=== PATIENT | male | born 1955 | race Caucasian/White ===

== ENCOUNTER 2019-07-31 07:07 | Outpatient (CLI) | payer OTHER, SELFPAY ==
[2019-07-31 08:13] LABS: Alanine Aminotransferase 22 U/L (4-50); Alkaline Phosphatase 58 U/L (38-126); Aspartate Amino Transferase 25 U/L (17-59); Bilirubin,Total 0.6 mg/dL (0.2-1.3); Blood Urea Nitrogen 14 mg/dL (9-20); Calcium 8.6 mg/dL (8.4-10.2); Carbon Dioxide 31 mmol/L (22-30); Chloride 103 mmol/L (98-107); Cholesterol 153 mg/dL (0-200); Estimated Glomerular Filt Rate > 60; Glucose 109 mg/dL (75-110); HDL Direct 42 mg/dL; Hematocrit 43.9 % (42.0-52.0); Hemoglobin 14.8 g/dL (14.0-18.0); Mean Corpuscular HGB Conc 33.7 g/dl (32-36); Mean Corpuscular Hemoglobin 31.6 pg (26-34); Mean Corpuscular Volume 93.6 fl (80-100); Mean Platelet Volume 9.4 fl (7.4-10.4); Platelet Count Result 244 k/mm3 (150-375); Potassium 4.4 mmol/L (3.4-5.0); Red Blood Count 4.69 M/mm3 (4.6-6.20); Red Cell Distribution Width 12.3 % (11.5-14.5); Sodium 137 mmol/L (137-145); Triglycerides 57 mg/dL (<150); White Blood Count 6.9 K/mm3 (4.5-10.0)
[2019-07-31 08:23] LABS: LDL Cholesterol Direct 98 mg/dL
[2019-07-31 08:42] LABS: Prostate Specific Antigen 1.3 ng/mL (< OR = 4.0)
[2019-07-31 09:17] LABS: Folic Acid 9.1 ng/mL (2.76->20)
[2019-08-04 15:24] LABS: Testosterone Free 95.7 pg/mL (35.0-155.0); Testosterone Total 634 ng/dL (250-1100)
== END 2019-07-31 07:08 | disposition home or self-care (01) ==
PROVIDERS: PCP Internal Medicine; Visit Provider Internal Medicine
DX: Z00.00 Encounter for general adult medical examination without abnormal findings (principal); N52.9 Male erectile dysfunction, unspecified; R53.83 Other fatigue
CPT/HCPCS: 36415; 80053; 80061; 82607; 82746; 84153; 84402; 84403; 84443; 85027

== ENCOUNTER 2021-02-10 06:59 | Outpatient (CLI) | payer OTHER, SELFPAY ==
[2021-02-10 09:24] LABS: Basophils Percent Auto 0.6 % (0.2-1.2); Eosinophils Absolute Auto 0.3 K/mm3 (0-0.3); Eosinophils Percent Auto 5.4 % (0-4.4); Hematocrit 44.9 % (42.0-52.0); Hemoglobin 14.7 g/dL (14.0-18.0); Immature Granulocyte Absolute 0.01 K/mm3 (0.00-0.031); Immature Granulocyte Percent A 0.2 % (0-0.5); Lymphocytes Absolute Auto 1.59 K/mm3 (0.9-3.2); Lymphocytes Percent Auto 25.4 % (18.3-44.2); Mean Corpuscular HGB Conc 32.7 g/dl (32-36); Mean Corpuscular Hemoglobin 31.7 pg (26-34); Mean Corpuscular Volume 96.8 fl (80-100); Mean Platelet Volume 9.6 fl (7.4-10.4); Monocytes Absolute Auto 0.6 K/mm3 (0.1-0.6); Monocytes Percent Auto 8.9 % (2.6-8.5); Neutrophils Absolute Auto 3.7 K/mm3 (1.3-6.7); Neutrophils Percent Auto 59.5 % (45.5-73.1); Platelet Count Result 243 k/mm3 (150-375); Red Blood Count 4.64 M/mm3 (4.6-6.20); Red Cell Distribution Width 12.6 % (11.5-14.5); White Blood Count 6.3 K/mm3 (4.5-10.0)
[2021-02-10 11:03] LABS: Alanine Aminotransferase 31 U/L (4-50); Albumin Level 4.2 g/dL (3.5-5.1); Alkaline Phosphatase 55 U/L (38-126); Anion Gap 4 mmol/L (8-16); Aspartate Amino Transferase 34 U/L (17-59); Bilirubin,Total 0.9 mg/dL (0.2-1.3); Blood Urea Nitrogen 16 mg/dL (9-20); Calcium 8.9 mg/dL (8.4-10.2); Carbon Dioxide 29 mmol/L (22-30); Chloride 105 mmol/L (98-107); Cholesterol 162 mg/dL (0-200); Estimated Glomerular Filt Rate 60; Glucose 105 mg/dL (65-110); HDL Direct 56 mg/dL; Potassium 4.3 mmol/L (3.4-5.0); Sodium 138 mmol/L (137-145); Triglycerides 57 mg/dL (<150)
[2021-02-10 11:14] LABS: LDL Cholesterol Direct 96 mg/dL
[2021-02-10 11:34] LABS: Prostate Specific Antigen 1.2 ng/mL (< OR = 4.0)
[2021-02-10 12:08] LABS: Folic Acid 4.4 ng/mL (2.76->20)
== END 2021-02-10 07:00 | disposition home or self-care (01) ==
PROVIDERS: PCP Internal Medicine; Visit Provider Internal Medicine
DX: Z00.00 Encounter for general adult medical examination without abnormal findings (principal); R53.83 Other fatigue
CPT/HCPCS: 36415; 80053; 80061; 82607; 82746; 84153; 84443; 85025; G0103

== ENCOUNTER 2021-04-27 08:35 | Outpatient (CLI) | payer OTHER, SELFPAY ==
--- NOTE | 2021-04-27 11:00 | NEURO_ITS ---
Impression: # Complains of numbness of upper and lower extremities. # Subtle evolving bilateral Carpal Tunnel Syndrome. # No ulnar neuropathy. # Normal needle/EMG exam with no evidence of fibrillations or myotonia. # Clinical correlation recommended. Nerve Conduction Studies Anti Sensory Summary Table Stim Site NR Peak (ms) P-T Amp (?V) Site1 Site2 Delta-P (ms) Dist (cm) Tylor (m/s) Left Median Anti Sensory (2-3nd Digit) Wrist 3.6 40.7 Wrist 2-3nd Digit 3.6 14.0 39 Wrist 3.4 52.0 Wrist 2-3nd Digit 3.6 14.0 39 Right Median Anti Sensory (2-3nd Digit) Wrist 3.9 66.4 Wrist 2-3nd Digit 3.9 14.0 36 Wrist 4.0 42.0 Wrist 2-3nd Digit 3.9 14.0 36 Left Radial Anti Sensory (Base 1st Digit) Wrist 2.3 24.4 Wrist Base 1st Digit 2.3 0.0 Right Radial Anti Sensory (Base 1st Digit) Wrist 2.4 18.9 Wrist Base 1st Digit 2.4 0.0 Left Sup Fibular Anti Sensory (Ant Lat Mall) 14 cm 3.2 28.2 14 cm Ant Lat Mall 3.2 16.0 50 Right Sup Fibular Anti Sensory (Ant Lat Mall) 14 cm 3.5 16.9 14 cm Ant Lat Mall 3.5 16.0 46 Left Sural Anti Sensory (Lat Mall) Calf 3.9 11.5 Calf Lat Mall 3.9 16.0 41 Right Sural Anti Sensory (Lat Mall) Calf 3.8 22.6 Calf Lat Mall 3.8 16.0 42 Left Ulnar Anti Sensory (5th Digit) Wrist 2.9 57.5 Wrist 5th Digit 2.9 14.0 48 Right Ulnar Anti Sensory (5th Digit) Wrist 2.9 21.5 Wrist 5th Digit 2.9 14.0 48 Motor Summary Table Stim Site NR Onset (ms) O-P Amp (mV) Site1 Site2 Delta-0 (ms) Dist (cm) Tylor (m/s) Left Median Motor (Abd Poll Brev) Wrist 4.0 2.4 Elbow Wrist 5.5 30.0 55 Elbow 9.5 3.9 Right Median Motor (Abd Poll Brev) Wrist 3.7 2.5 Elbow Wrist 4.9 28.0 57 Elbow 8.6 1.2 Left Peroneal Motor (Vastus Med) Ankle 4.5 1.5 Popit Ankle 9.6 41.0 43 Popit 14.1 0.7 Right Peroneal Motor (Vastus Med) Ankle 4.8 4.2 Popit Ankle 9.1 37.0 41 Popit 13.9 3.3 Left Tibial Motor (Abd Head Brev) Ankle 4.8 2.5 Knee Ankle 10.1 42.0 42 Knee 14.9 2.6 Right Tibial Motor (Abd Head Brev) Ankle 5.0 1.9 Knee Ankle 9.8 41.0 42 Knee 14.8 1.9 Left Ulnar Motor (Abd Dig Minimi) Wrist 2.9 4.3 A Elbow Wrist 5.1 30.0 59 A Elbow 8.0 3.8 Right Ulnar Motor (Abd Dig Minimi) Wrist 2.6 4.6 A Elbow Wrist 5.1 29.0 57 A Elbow 7.7 4.4 F Wave Studies NR F-Lat (ms) L-R F-Lat (ms) Left Median (Mrkrs) (Abd Poll Brev) 29.29 0.15 Right Median (Mrkrs) (Abd Poll Brev) 29.44 0.15 Left Peroneal (Mrkrs) (EDB) 54.31 0.85 Right Peroneal (Mrkrs) (EDB) 53.46 0.85 Left Tibial (Mrkrs) (Abd Hallucis) 54.67 0.27 Right Tibial (Mrkrs) (Abd Hallucis) 54.94 0.27 Left Ulnar (Mrkrs) (Abd Dig Min) 30.65 1.05 Right Ulnar (Mrkrs) (Abd Dig Min) 29.59 1.05 EMG Side Muscle Nerve Root Ins Act Fibs Amp Dur Recrt Comment Right 1stDorInt Ulnar C8-T1 Nml Nml Nml Nml Nml Right Ext Indicis Radial (Post Int) C7-8 Nml Nml Nml Nml Nml Right Ext Digitorum Radial (Post Int) C7-8 Nml Nml Nml Nml Nml Right BrachioRad Radial C5-6 Nml Nml Nml Nml Nml Right PronatorTeres Median C6-7 Nml Nml Nml Nml Nml Right Abd Poll Brev Median C8-T1 Nml Nml Nml Nml Nml Right AntTibialis Dp Br Fibular L4-5
== END 2021-04-27 08:36 | disposition home or self-care (01) ==
LOC: ANHNEURO 08:37
PROVIDERS: PCP Internal Medicine; Visit Provider Physician Assistant
DX: G56.03 Carpal tunnel syndrome, bilateral upper limbs (principal); R20.0 Anesthesia of skin
CPT/HCPCS: 95886; 95913

== ENCOUNTER 2021-05-20 01:03 | Day surgery (SDC) | payer OTHER, SELFPAY ==
[2021-05-06 13:52] VITALS: BMI 25.1
[2021-05-20 06:58] VITALS: BP 138/82; PULSE 82; RESP 20; TEMP 36.8; O2SAT 97
[2021-05-20] MEDS: LACTATED RINGERS 1,000 ML 150 ML IV CONT (07:11)
--- NOTE | 2021-05-20 07:26 | WPDANESEPPF ---
Anes - Initial Pre Proc Eval Procedure: Operation Date: 05/20/21 08:00 Proposed Procedures p Screening Colonoscopy - Justyn Brooks MD Date/Time: 05/20/21 07:26 Surgeon: Justyn Brooks MD Pre Op Diagnosis: neoplasm screening Patient Data Age: 65 Gender: M Height: 1.78 m Weight: 76.3 kg Last Vital Signs Temp 36.8 C 05/20/21 06:58 Pulse 82 05/20/21 06:58 Resp 20 05/20/21 06:58 BP 138/82 05/20/21 06:58 Pulse Ox 97 05/20/21 06:58 Allergies Allergy/AdvReac Type Severity Reaction Status Date / Time No Known Allergies Allergy Verified 05/20/21 06:56 Home Medications Medication Instructions Recorded Confirmed Type fluticasone propionate 50 2 spray NASAL DAILY 01/16/19 05/06/21 History mcg/actuation nasal spray,suspension sildenafil 100 mg tablet 100 mg PO DAILY PRN #9 tablet 01/22/19 05/06/21 Rx halobetasol propionate 0.05 % 1 applic TOPICAL DAILY #15 gm 09/29/19 05/06/21 Rx topical ointment fexofenadine 60 mg-pseudoephedrine 1 tablet PO Q12H PRN 01/17/21 05/06/21 History ER 120 mg tablet,ext.release,12 hr tczppmlv-zgr-ipmbr acid 300 1 tablet PO DAILY 01/17/21 05/06/21 History mcg-lycopene 600 mcg-lutein 300 mcg tablet Patient hx anesthesia problems: none Family hx anesthesia problems: none Results Review: All pre-operative results and documents have been reviewed as part of the pre-operative evaluation. COUNT INCLUDES [facility] Surgical History Surgical History (Updated 05/20/21 @ 07:27 by Rayshawn Hinojosa MD) H/O arthroscopic knee surgery Family History Family History Mother Hypertension Father Patient's father is Grandparent Family history of heart disease in male family member before age 55 Social History Social History Smoking status: Never smoker Second hand tobacco smoke exposure: No Alcohol intake: current Drinks per week: 8 Substance use: never Substance use type: does not use Living arrangements: with family Spiritual care concerns: No Anes - Eval Final PreProcedure Day of Procedure 05/20/21 07:26 Patient weight: overweight Heart: regular rate and rhythm Lungs: clear to auscultation Airway: Mallampati scale class II Neurological: alert and oriented Last oral intake: >/= 8 hours ASA classification: II Emergent: no Anesthetic plan: proceed Anesthesia type and monitoring: general GIVS and standard monitoring Results Review: All pre-operative results and documents have been reviewed as part of the pre-operative evaluation. Informed Consent: The patient's anesthetic plan and its attendant risks and benefits were discussed with the patient/family/POA. Questions were solicited and answers provided to the satisfaction of the patient/family/POA.
--- NOTE | 2021-05-20 07:54 | WPDGICN ---
Assessment and Plan Assessment and plan (1) Encounter for screening colonoscopy: Code(s): Z12.11 - Encounter for screening for malignant neoplasm of colon Status: Acute Assessment and Plan: Patient presents for screening colonoscopy. Has been 10 years since last exam. Patient appears to be at average risk for colon polyps. GI Consult Note Consult date/time: 05/20/21 07:54 HPI: Davi Hong is a 65 year old male Presents for screening colonoscopy. Patient's current weight appetite bowel movements are normal. He denies abdominal pain. He has had no bleeding. Family history is noncontributory. Patient's last colonoscopy 10 years ago was unremarkable. Patient presents today for neoplasia screening. Review of Systems Review of Systems: All systems reviewed & are unremarkable except as noted in HPI and below PMFSH Surgical History Surgical History (Updated 05/20/21 @ 07:27 by Rayshawn Hinojosa MD) H/O arthroscopic knee surgery Family History Family History Mother Hypertension Father Patient's father is Grandparent Family history of heart disease in male family member before age 55 Social History Social History Smoking status: Never smoker Second hand tobacco smoke exposure: No Alcohol intake: current Drinks per week: 8 Substance use: never Substance use type: does not use Living arrangements: with family Spiritual care concerns: No Meds Home Medications and Allergies Home Medications Medication Instructions Recorded Confirmed Type fluticasone propionate 50 2 spray NASAL DAILY 01/16/19 05/06/21 History mcg/actuation nasal spray,suspension sildenafil 100 mg tablet 100 mg PO DAILY PRN #9 tablet 01/22/19 05/06/21 Rx halobetasol propionate 0.05 % 1 applic TOPICAL DAILY #15 gm 09/29/19 05/06/21 Rx topical ointment fexofenadine 60 mg-pseudoephedrine 1 tablet PO Q12H PRN 01/17/21 05/06/21 History ER 120 mg tablet,ext.release,12 hr gitauuqj-efv-qxecu acid 300 1 tablet PO DAILY 01/17/21 05/06/21 History mcg-lycopene 600 mcg-lutein 300 mcg tablet Allergies Allergy/AdvReac Type Severity Reaction Status Date / Time No Known Allergies Allergy Verified 05/20/21 06:56 Vital Signs Vital Signs - 24 hr 05/20/21 06:58 Temperature 98.2 F Pulse Rate 82 Respiratory Rate 20 Blood Pressure 138/82 Pulse Oximetry 97 Exam Narrative: Physical exam reveals patient to be alert. Vital signs stable. HEENT exam is unremarkable. Patient is anicteric. Lungs are clear to auscultation and percussion. Heart is without murmur or extra sounds. Abdomen bowel sounds are present soft nontender with no organomegaly. Digital external rectal exam is normal.
[2021-05-20 08:22] VITALS: BP 112/71; PULSE 75; RESP 13; O2SAT 97
[2021-05-20 08:32] VITALS: BP 118/79; PULSE 72; RESP 20; O2SAT 97
[2021-05-20 08:42] VITALS: BP 142/87; PULSE 71; RESP 24; O2SAT 99
== END 2021-05-20 08:45 | disposition home or self-care (01) ==
PROVIDERS: PCP Internal Medicine; Visit Provider Internal Medicine Gastroenterology
PROC: 0DJD8ZZ Inspection of Lower Intestinal Tract, Via Natural or Artificial Opening Endoscopic (ICD-10-PCS; CPT 45378; principal; 2021-05-20 08:00)
DX: Z12.11 Encounter for screening for malignant neoplasm of colon (principal); D12.2 Benign neoplasm of ascending colon; D12.3 Benign neoplasm of transverse colon; D12.5 Benign neoplasm of sigmoid colon; K64.8 Other hemorrhoids
CPT/HCPCS: 45385; 88305; J2704; J7120

== ENCOUNTER → 2021-12-26 15:22 | Outpatient (CLI) | payer OTHER, SELFPAY ==
--- NOTE | ~2021-12-26 | CT_ITS ---
EXAMINATION: CTA chest PE protocol DATE: 12/26/2021 15:57 INDICATION: Elevated d-dimer TECHNIQUE: Computed tomography (CT) pulmonary angiogram of the chest was performed with 100 mL Omnipa que-350 intravenous contrast. Additional 3D reconstructions utilizing coronal maximum intensity proje ction (MIP) were performed. Automated exposure control and iterative reconstruction technique were em ployed. The dose-length product was 427.75 mGy-cm. COMPARISON: None FINDINGS: Excellent contrast opacification of the pulmonary arteries. There is mild streak artifact from dense contrast in the superior vena cava and right atrium. Mild scattered respiratory motion artifact switc hed does not significantly limit evaluation. No pulmonary embolism. Mild dependent atelectasis in the bilateral lower lobes with dependent groundglass opacities, volume loss and bronchovascular crowding . No pneumonia, pulmonary edema, pleural effusion or pneumothorax. Heart size is normal. No pericardi al effusion. Thoracic aorta is normal in caliber with no dissection. No pathologically enlarged thora cic lymphadenopathy. Multiple hepatic cysts the largest measuring up to 2.3 cm. Visualized upper abd omen is otherwise unremarkable. Bones are unremarkable. IMPRESSION: 1. No pulmonary embolism or other acute cardiopulmonary disease. Reviewed, dictated and finalized at location A. SAMPLE MAKER
[2021-12-26 15:44] LABS: Estimated Glomerular Filt Rate 60
== END ==
PROVIDERS: PCP Internal Medicine
DX: R79.89 Other specified abnormal findings of blood chemistry (principal); I82.402 Acute embolism and thrombosis of unspecified deep veins of left lower extremity
CPT/HCPCS: 71275; Q9967

== ENCOUNTER → 2022-01-06 07:15 | Outpatient (CLI) | payer OTHER, SELFPAY ==
--- NOTE | ~2022-01-06 | MR_ITS ---
EXAMINATION: MR lower leg LT wo con DATE: 01/06/2022 07:58 INDICATION: Bone lesion in left tibia. Left calf pain. TECHNIQUE: Magnetic resonance imaging (MRI) of the left lower leg was performed without intravenous c ontrast. COMPARISON: None. FINDINGS: Bone alignment is normal. No fracture. Tibial diaphysis demonstrates periosteal edema anter iorly. Left knee demonstrates severe osteoarthritis of the medial compartment and mild osteoarthritis of the lateral and patellofemoral compartments. There is a moderate-sized Ron's cyst. The musculat ure is normal. IMPRESSION: 1. Severe left knee osteoarthritis. 2. Moderate-sized left Ron's cyst. 3. Mild medial tibial stress syndrome ([place] grade 1). Reviewed, dictated and finalized at location A. OPATHOLOGIST
== END ==
PROVIDERS: PCP Internal Medicine
DX: M17.12 Unilateral primary osteoarthritis, left knee (principal); M76.812 Anterior tibial syndrome, left leg
CPT/HCPCS: 73718

== ENCOUNTER 2022-06-29 06:51 | Outpatient (CLI) | payer OTHER, SELFPAY ==
[2022-06-29 07:36] LABS: Basophils Absolute Auto 0.1 K/mm3 (0.0-0.1); Basophils Percent Auto 0.7 % (0.2-1.2); Eosinophils Absolute Auto 0.4 K/mm3 (0-0.3); Eosinophils Percent Auto 5.8 % (0-4.4); Hematocrit 43.3 % (42.0-52.0); Hemoglobin 14.2 g/dL (14.0-18.0); Immature Granulocyte Absolute 0.01 K/mm3 (0.00-0.031); Immature Granulocyte Percent A 0.1 % (0-0.5); Lymphocytes Absolute Auto 1.73 K/mm3 (0.9-3.2); Lymphocytes Percent Auto 24.5 % (18.3-44.2); Mean Corpuscular HGB Conc 32.8 g/dl (32-36); Mean Corpuscular Hemoglobin 31.3 pg (26-34); Mean Corpuscular Volume 95.4 fl (80-100); Mean Platelet Volume 9.4 fl (7.4-10.4); Monocytes Absolute Auto 0.5 K/mm3 (0.1-0.6); Monocytes Percent Auto 7.5 % (2.6-8.5); Neutrophils Absolute Auto 4.3 K/mm3 (1.3-6.7); Neutrophils Percent Auto 61.4 % (45.5-73.1); Platelet Count Result 246 k/mm3 (150-375); Red Blood Count 4.54 M/mm3 (4.6-6.20); Red Cell Distribution Width 12.6 % (11.5-14.5); White Blood Count 7.1 K/mm3 (4.5-10.0)
[2022-06-29 09:47] LABS: Alanine Aminotransferase 26 U/L (6-50); Albumin Level 4.2 g/dL (3.5-5.1); Alkaline Phosphatase 55 U/L (38-126); Anion Gap 4 mmol/L (8-16); Aspartate Amino Transferase 28 U/L (17-59); Bilirubin,Total 1.1 mg/dL (0.2-1.3); Blood Urea Nitrogen 17 mg/dL (9-20); Calcium 8.5 mg/dL (8.4-10.2); Carbon Dioxide 30 mmol/L (22-30); Chloride 105 mmol/L (98-107); Cholesterol 173 mg/dL (0-200); Estimated Glomerular Filt Rate > 60; Glucose 108 mg/dL (65-110); HDL Direct 43 mg/dL; Potassium 4.5 mmol/L (3.4-5.0); Sodium 139 mmol/L (137-145); Triglycerides 74 mg/dL (<150)
[2022-06-29 09:58] LABS: LDL Cholesterol Direct 107 mg/dL
[2022-06-29 10:18] LABS: Prostate Specific Antigen 1.5 ng/mL (< OR = 4.0)
== END 2022-06-29 06:52 | disposition home or self-care (01) ==
LOC: ANHLAB 06:52
PROVIDERS: PCP Internal Medicine; Visit Provider Internal Medicine
DX: Z00.00 Encounter for general adult medical examination without abnormal findings (principal); E53.8 Deficiency of other specified B group vitamins; Z12.5 Encounter for screening for malignant neoplasm of prostate
CPT/HCPCS: 36415; 80053; 80061; 82607; 84153; 84443; 85025; G0103

== ENCOUNTER 2023-12-17 08:44 | Outpatient (CLI) | payer OTHER, SELFPAY ==
[2023-12-17 09:15] LABS: Hematocrit 46.7 % (42.0-52.0); Hemoglobin 15.1 g/dL (14.0-18.0); Mean Corpuscular HGB Conc 32.3 g/dl (32-36); Mean Corpuscular Hemoglobin 31.1 pg (26-34); Mean Corpuscular Volume 96.1 fl (80-100); Mean Platelet Volume 9.1 fl (7.4-10.4); Platelet Count Result 223 k/mm3 (150-375); Red Blood Count 4.86 M/mm3 (4.6-6.20); Red Cell Distribution Width 12.5 % (11.5-14.5); White Blood Count 6.7 K/mm3 (4.5-10.0)
[2023-12-17 09:25] LABS: Alanine Aminotransferase 23 U/L (6-50); Albumin Level 4.1 g/dL (3.5-5.1); Alkaline Phosphatase 50 U/L (38-126); Anion Gap 4 mmol/L (4-12); Aspartate Amino Transferase 26 U/L (17-59); Blood Urea Nitrogen 16 mg/dL (9-20); Carbon Dioxide 30 mmol/L (22-30); Chloride 103 mmol/L (98-107); Cholesterol 182 mg/dL (0-200); Estimated Glomerular Filt Rate > 60; Glucose 103 mg/dL (65-110); HDL Direct 52 mg/dL; Potassium 4.2 mmol/L (3.4-5.0); Sodium 137 mmol/L (137-145); Triglycerides 86 mg/dL (<150)
[2023-12-17 09:37] LABS: LDL Cholesterol Direct 104 mg/dL
[2023-12-17 10:02] LABS: Prostate Specific Antigen 1.3 ng/mL (< OR = 4.0)
== END 2023-12-17 08:45 | disposition home or self-care (01) ==
LOC: ANHLAB 08:45
PROVIDERS: PCP Internal Medicine; Visit Provider Nurse Practitioner
DX: E53.8 Deficiency of other specified B group vitamins (principal); Z00.00 Encounter for general adult medical examination without abnormal findings
CPT/HCPCS: 36415; 80053; 80061; 82607; 84153; 84443; 85027; G0103

== ENCOUNTER 2024-03-10 08:36 | Emergency (ER) | payer OTHER, SELFPAY ==
[2024-03-10 08:51] VITALS: BP 179/98; PULSE 76; RESP 16; TEMP 36.5; O2SAT 97
--- NOTE | 2024-03-10 09:09 | ED_ITS ---
HPI - URI/Sore Throat General Chief Complaint: Upper Respiratory Infection Stated Complaint: DÍAZ,pressure,off balance,cough,fever Time Seen by Provider: 03/10/24 09:09 Source: patient, RN notes reviewed and old records reviewed Mode of arrival: ambulatory Limitations: no limitations History of Present Illness HPI Narrative: Patient presents with complaints of flu-like symptoms for the past 5 days. He reports that he feels as though he is getting better, but still feels as though he has a lot head congestion. He has been taking multiple bknf-wwy-swjfrie medications, some with decongestant, and he is aware that this is elevating his blood pressure. He denies any chest pain or shortness of breath. He voices no other concerns or complaints today Related Data Home Medications ?Medication ?Instructions ?Recorded ?Confirmed ?Last Taken ?Type fluticasone propionate 50 2 spray intranasal DAILY 01/16/19 12/11/23 Unknown History mcg/actuation nasal spray,suspension (Flonase Allergy Relief) fexofenadine 60 mg-pseudoephedrine 1 tablet PO Q12H PRN Allergy 01/17/21 12/11/23 Unknown History ER 120 mg tablet,ext.release,12 hr Symptoms (Lani-D 12 Hour) eilrgbhg-tr-ipptk 300 mcg-K 60 1 tablet PO DAILY 01/17/21 12/11/23 Unknown History mcg-lycop 600 mcg-lutein 300 mcg tablet (Centrum Silver Ultra Men's) apixaban 5 mg tablet (Eliquis) 5 mg PO BID 06/12/22 12/11/23 Unknown History Allergies Allergy/AdvReac Type Severity Reaction Status Date / Time No Known Allergies Allergy Verified 03/10/24 08:55 Review of Systems Review of Systems: All systems reviewed & are unremarkable except as noted in HPI and below Constitutional: Constitutional: Reports no additional constitutional complaints, Reports body ache(s), Reports chills, Reports fever(s), Reports headache(s) and Reports lethargy ENT: Reports system reviewed and no additional complaints, except as documented, Reports nasal congestion and Reports nasal discharge Cardiovascular: Cardiovascular: Reports no additional cardiovascular complaints Respiratory: Respiratory: Reports no additional respiratory complaints and Reports cough Gastrointestinal: Gastrointestinal: Reports no additional gastrointestinal complaints [facility] Past Medical History Medical History (Updated 03/10/24 @ 09:20 by Harrietgabriel August APRN) Pain in left knee Cough Congestion of left ear BMI 25.0-25.9,adult Surgical History Surgical History H/O arthroscopic knee surgery Family History Family History Mother Hypertension Thyroid activity decreased Father Patient's father is Grandparent Family history of heart disease in male family member before age 55 Sibling No problems noted. 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 There is no relevant family history pertinent to the patient complaint. Exam Const: General: cooperative, no acute distress, alert and awake Orientation/consciousness: oriented to person, oriented to place and oriented to time HENMT: Head: normal to inspection Ears: TM abnormal dull bilateral and with fluid behind the TM bilateral Resp: Effort & Inspection: normal respiratory effort and able to speak in co mplete sentences Auscultation: clear to auscultation bilaterally, no crackles, no rales, no rhonchi and no wheezes Cardio: Palpation: normal PMI Rate: regular rate Rhythm: regular rhythm Heart sounds: S1 normal heart sound present and S2 normal heart sound present Neuro: General: oriented to person, oriented to place and oriented to time Cranial nerves: Yes CN's II-XII intact bilaterally Psych: Appearance: grossly normal Thought process: Normal thought process present Insight: Good insight present (Psych) Judgement: Good judgement present (Psych) Course Course Level of Care: Express Care Visit Vital Signs Vital signs: Vital Signs Temperature 97.7 F 03/10/24 08:51 Pulse Rate 76 03/10/24 08:51 Respiratory Rate 16 03/10/24 08:51 Blood Pressure 179/98 H 03/10/24 08:51 Pulse Oximetry 97 03/10/24 08:51 Oxygen Delivery Room Air 03/10/24 08:51 Temperature 97.7 F 03/10/24 08:51 Pulse Rate 76 03/10/24 08:51 Respiratory Rate 16 03/10/24 08:51 Blood Pressure 179/98 H 03/10/24 08:51 Pulse Oximetry 97 03/10/24 08:51 Oxygen Delivery Room Air 03/10/24 08:51 Reviewed MDM - URI/Sore Throat MDM Narrative Medical decision making narrative: Patient nontoxic appearing, stable for discharge home. Counseled to continue to treat symptomatically, but discontinue any medications that contain pseudoephedrine. Blood pressure is elevated as a result of these medications, he denies any chest pain or shortness of breath. He is instructed to monitor blood pressure at home. Strict emergency department precautions discussed. Discharge instructions reviewed with patient, as well as provided in writing per nursing staff. The instructions also include specific and strict return/GO TO THE ER as well as f/u information. All questions have been answered, and the patient deny any further questions with discharge and discharge plan. Some parts of this dictation were generated by voice recognition software and may contain typographical and/or grammatical inaccuracies. Differential Diagnosis Differential diagnosis: Likely upper respiratory infection, otitis media, viral infection and influenza Medical Records Attestation: I reviewed the patient's medical records. Discharge Plan Discharge Clinical Impression: Elevated blood pressure reading Upper respiratory infection Qualifiers: URI type: unspecified viral URI Qualified Code(s): J06.9 - Acute upper respiratory infection, unspecified Patient Disposition: Home, Self-Care Condition: Stable Instructions: Antibiotic Form, Influenza (ED) Additional Instructions: Take medications as prescribed. Follow with primary care provider. Emergency department for any new or worsening symptom. Blood pressure is noted to be elevated today. Please avoid any btpm-koe-tnxqfim medications that contain pseudoephedrine. Follow-up with primary care provider regarding your blood pressure Patient Language: German Prescriptions: New prednisone 50 mg tablet 50 mg PO DAILY Qty: 5 0RF No Action fluticasone propionate [Flonase Allergy Relief] 50 mcg/actuation spray,suspension 2 spray NASAL DAILY sildenafil 100 mg tablet 100 mg PO DAILY PRN (Reason: sexual activity) Qty: 9 5RF Rx Instructions: administer 30 minutes to 4 hours before activity fexofenadine-pseudoephedrine [Lani-D 12 Hour] 60-120 mg tablet extended release 12 hr 1 tablet PO Q12H PRN (Reason: Allergy Symptoms) Centrum Silver Ultra Men's 300-600-300 mcg tablet 1 tablet PO DAILY Eliquis 5 mg tablet 5 mg PO BID azelastine 205.5 mcg (0.15 %) spray,non-aerosol 2 spray intranasal BID Qty: 30 3RF Rx Instructions: administer into each nostril sildenafil 100 mg tablet 100 mg PO DAILY PRN (Reason: sexual activity) Qty: 30 2RF Rx Instructions: administer 30 minutes to 4 hours before activity halobetasol propionate 0.05 % ointment 1 applic TOPICAL DAILY Qty: 15 0RF Rx Instructions: for 2 weeks betamethasone valerate 0.1 % cream 1 applic topical BID Qty: 45 1RF Follow-up/Referrals: Tutu,Aidan Parra DO [Primary Care Provider] - 1 Week Stand Alone Forms: Work/School Release IP Time of Disposition: 09:20
[2024-03-10 09:20] VITALS: BP 182/94
== END 2024-03-10 09:25 | disposition home or self-care (01) ==
PROVIDERS: Emergency Provider Nurse Practitioner Family; PCP Internal Medicine
DX: R03.0 Elevated blood-pressure reading, without diagnosis of hypertension (principal); J06.9 Acute upper respiratory infection, unspecified; M19.90 Unspecified osteoarthritis, unspecified site; Z86.718 Personal history of other venous thrombosis and embolism; Z79.01 Long term (current) use of anticoagulants
CPT/HCPCS: 99213; G0463

== ENCOUNTER 2024-04-01 07:03 | Outpatient (CLI) | payer OTHER, SELFPAY ==
--- OUTSIDE RECORDS SUMMARY | 2024-04-01 07:07 | XMS_ITS | Continuity of Care Document ---
Author Organization [facility] Address [address] [place] [address] Phone Care Team Providers Care Administrative Resident Name Role Phone London Mercado Unavailable Unavailable Allergies, Adverse Reactions, Alerts Substance Reaction Status Criticality No Known Allergies Active No Inform ation Medications Medication Instructions Dosage Effective Dates (start - stop) Status Comments ELIQUIS (unknown strength) Not Available - Active OSCAR-D 12 HOUR (unknown strength) Not Available - Active BRYHALI (unknown strength) Not Available - Active DOXYCYCLINE MONOHYDRATE (unknown strength) Not Available - Active Procedures Procedure Date X-ray exam knee, 4+ views Office/outpatient visit,tom blair 2024 X-ray exam knee, 4+ views BMI Documented Above Normal Limit F/U Pl an Doc Office/outpatient visit,tom aponte 2023 Advance Directives Directive Yes / No Effective Date File Name No Information Encounters Encounter Description Practice Location Reason(s) For Visit Diagnoses Date Provider Providers Copied on Encounter Office/outpat ient visit,[facility] [facility], [address], [place], [place], [id number], [place] tel:[phone] [facility] [facility] left knee (chief complaint) Pain in left kneeUnilateral primary osteoarthritis, left knee 5 Rogelio Snider er. [address], [address], [place], [place], [id number] , [place]. tel:[phone] Office/outpat ient visit,newtom [facility], [address], [place], [place], [address], [place] tel:[phone] [facility] left knee (chief complaint) Pain in left kneeUnilateral primary osteoarthritis, left knee 4 Rogelio bond. [address], [address], [place], [place], [id number] , [place]. tel: [phone] Family History Family Member Type Diagnosis Age At Onset Father Problem (finding) Heart Disease Immunizations Vaccine Date Status Comments influenza, injectable, quadrivalent, (3 years or older) administered Note: per patient ; Source: Source Unspecified Payers Payer name Insurance type Covered alliance party ID Authorrhiannaa xin(s) [facility] [id number] Social History Type Description Quantity Date Captured Comments Alcohol Use Details Unknown Caffeine Use Details Unknown Tobacco Use Status No Information Smoking Status No Information Non-Smoking Tobacco Use Details : No Details Available : No Details Available Sex Male Vital Signs Date / Time: Height Weight BMI Pulse Rate Blood Pressure Temperature Respiratory Rate Body Surface Area Head Circumference Head Circ. Percentile Wt./Kemar. Percentile BMI percentile Pulse Ox Inhaled Ox 11:41 AM 70.00 in 76.204 kg (168.00 lbs) 24.1 1 kg/m eter (2) Chief Complaint And Reason For Visit From encounter dated '02/27/2024 11:00'. left knee (chief complaint). Description: Davi is a 68 year-old male who presents to the office for evaluation of left knee pain. Presents for repeat follow-up of left knee.Has had pain in his left knee for many years. We have seen him in the office several times. He endorses grinding popping limping and instability in his left knee. Pain is on the medial side. Pain is functionally limiting has been noted for greater than 6 months. Conservative treatments have employed including injections anti-inflammatories bracing activity modification and various therapies. He now wishes to proceed with total knee arthroplastyHe has a history of DVT and does take Eliquis 2.5 mg twice a day he has been on this for several years the DVT was in the left lower extremity. He reports no pulmonary embolismRadiographs dated 02/27/2024P, lateral, merchant, Varela views of the left knee demonstrate end-stage osteoarthritis of the medial compartment with severe varus alignment. There are osteophytes present on the medial femur and tibia. There is sclerosis of the subchondral bone of the medial tibia.There is moderate osteoarthritis of the patellofemoral joint. Impression end-stage osteoarthritis of the knee with varus alignmentkELLGREN-AGUSTINA IV arthritis Reason For Referral Reason For Referral No Information Plan Of Treatment Date Type Action Status Referral Ordered: X-ray exam knee, 4+ views LT knee ordered Appointment Davi Hong BOOKED History Of Present Illness Encounter Date Complaint History Of Prese nt Illness left knee Davi is a 68 year-old male who presents to the office for evaluation of left knee pain. Presents for repeat follow-up of left knee.Has had pain in his left knee for many years. We have seen him in the office several times. He endorses grinding popping limping and instability in his left knee. Pain is on the medial side. Pain is functionally limiting has been noted for greater than 6 months. Conservative treatments have employed including injections anti-inflammatories bracing activity modification and various therapies. He now wishes to proceed with total knee arthroplastyHe has a history of DVT and does take Eliquis 2.5 mg twice a day he has been on this for several years the DVT was in the left lower extremity. He reports no pulmonary embolismRadiographs dated 02/27/2024P, lateral, merchant, Varela views of the left knee demonstrate end-stage osteoarthritis of the medial compartment with severe varus alignment. There are osteophytes present on the medial femur and tibia. There is sclerosis of the subchondral bone of the medial tibia. There is moderate osteoarthritis of the patellofemoral joint. Impression end-stage osteoarthritis of the knee with varus alignmentkELLGREN-AGUSTINA IV arthritis left knee Davi is a 67 year-old male who presents to the office for evaluation of left knee pain. He is 5 foot 10, 170 pounds. Denies acute trauma. Pain is rated as 8 out of 10 it is aching, constant, stabbing. He is experiencing limping, popping. Pain is worse with climbing stairs pushing standing and walking. Pain is better with injections Visco supplement. He has been treated with Dr. Azar has had a history of 6 cortisone injections which are no longer working and is now receiving gel injections. He is functionally limiting pain present for greater than 6 months and is no longer amenable to conservative treatment he does have a history of DVT in his left leg he has been on Eliquis for 2 years for this. He is a non-smoker.The patient has completed adequate conservative therapy consisting of: Tylenol, anti-inflammatories, physical therapy, activity modification, and injections. Currently conservative treatment is no longer providing adequate symptom management and the patient wishes to progress to total joint arthroplasty. Symptoms have been present for greater than 6 months, pain is rated as an 8 out of 10 and is functionally limiting. The patient is no longer able to perform activities of daily living such as climbing hills and ramps, a sending and descending stairs, walking greater than 1-2 city blocks without significant pain. Functional Status Date Functional Assessmen t No Information Instructions Date Instruction Additional Infor clair After discussing the risks benefits and alternatives to treatment. Risks include DVT, PE, infection, persistent pain, swelling and stiffness, damage to nerves and arteries, fracture, and loosening. Additional, medical complications related to surgery including constipation, pneumonia, urinary retention, and other issues. The patient understands all this and wishes to proceed with knee arthroplasty. We discussed the hospital course, the postoperative rehabilitation protocol including aggressive outpatient physical therapy. We discussed that if physical therapy is not optimized the patient could develop stiffness of the knee leading to suboptimal outcomes. We also discussed DVT prophylaxis this includes aspirin. Appropriate preoperative radiographs were obtained for templating purposes. All questions were answered wrist and benefits explained the patient wishes to proceed with total knee arthroplasty. Reese Adams. ambulatory outpatient total knee arthroplasty. On Eliquis for DVT prophylaxis postoperatively -- history of DVT in the left lower extremityPress-fit Molly triathlon components Related to Unilateral primary osteoarthritis, left knee After discussing the risks benefits and alternatives to treatment. Risks include DVT, PE, infection, persistent pain, swelling and stiffness, damage to nerves and arteries, Additional, medical complications related to surgery including constipation, pneumonia, urinary retention, and other issues. The patient understands all this and wishes to proceed with knee arthroplasty. We discussed the hospital course, the postoperative rehabilitation protocol including aggressive outpatient physical therapy. We discussed that if physical therapy is not optimized the patient could develop stiffness of the knee leading to suboptimal outcomes. We also discussed DVT prophylaxis this includes aspirin and PAS active care compression devices unless the patient specifically has an increased risk of DVT. Appropriate preoperative radiographs were obtained for templating purposes. All questions were answered wrist and benefits explained the patient wishes to proceed with total knee arthroplasty. Patient wishes to undergo ambulatory outpatient total knee arthroplasty in the fall of 2023. He also has interest in a Visco supplement injection in the next several weeks to give him relief until his knee arthroplasty. Related to Unilateral primary osteoarthritis, left knee Assessments Type Assessment Date assessment Pain in left knee assessment Unilateral primary osteoarthriti s, left knee impression After exhaustion of non-surgical treatment options, the patient has utilized a brace, anti-inflammatories, pain management, physical therapy. Radiographs demonstrate end stage osteoarthritis of the knee and multiple compartments. The patient has persistent pain that is worse with activity. This pain is affecting her life in a negative way. the patient wishes to proceed with total knee arthroplasty, based on the failure of non-surgical treatment methods for knee arthritis.Discussed history of DVT he would need to stop Eliquis for a short period of time prior to the procedure would certainly restart the Eliquis postoperatively. Discussed increased risk of DVT and embolism in the postoperative setting given his history Patient Care Teams Name Effective Dates (start - stop) Status Members No Information
--- OUTSIDE RECORDS SUMMARY | 2024-04-01 07:07 | XMS_ITS | Continuity of Care Document ---
Author Organization [facility] Address [address] [place] [address] Phone Care Team Providers Care Mimeograph Operator Name Role Phone Milagros Perdomo MD Unavailable Unavailable Allergies, Adverse Reactions, Alerts Substance Reaction Status Criticality No Known Allergies Active No Inform ation Procedures Procedure Date RADIOLOGIC EXAMINATION, KNEE; THREE VIEW S KENALOG 10 MG ASP/INJ MAJOR JOINTOR BURSA, SHOULDER, H IP,KNEE W/O US GUIDANCE OFFICE [id number] Advance Directives Directive Yes / No Effective Date File Name No Information Encounters Encounter Description Practice Location Reason(s) For Visit Diagnoses Date Provider Providers Copied on Encounter OFFICE [id number], [address], [place], [place], [address], [place] tel:[phone] [facility] knee (chief complaint) Primary osteoarthritis of left knee Leanne iLnares. [address], [place], [place], [address] , [place]. tel:[phone] Referring Provider: Phan [address] [facility] [address], [place], [address] . tel:[phone] Family History Family Member Type Diagnosis Age At Onset No Information Payers Payer name Insurance type Covered constitution party ID Authoriza tion(s) [facility] [id number] Social History Type Description Quantity Date Captured Comments Alcohol Use Details beer Caffeine Use Details Unknown Aug-25-2022 Tobacco Use Status Current non-smoker Smoking Status Never smoker Non-Smoking Tobacco Use Details : No Details Available : No Details Available Sex Male Sexual Orientation Straight or heterosexual Gender Identity Male Vital Signs Date / Time: Height Weight BMI Pulse Rate Blood Pressure Temperature Respiratory Rate Body Surface Area Head Circumference Head Circ. Percentile Wt./Kemar. Percentile BMI percentile Pulse Ox Inhaled Ox 8:42 AM 70.00 in 77.111 kg (170.00 lbs) 24.3 9 kg/m eter (2) Chief Complaint And Reason For Visit From encounter dated '09/29/2021 09:30'. knee (chief complaint). Description: 10 years of progressive left medial knee dialy 8/10 pain with good rom and hlped a bit with injecitons but not with nsaids or over 6 monhths of phy directed home exercises works [employer] treatment palnt xrys med djd left knee plan reviewed options plan left med uni knee 2022 inj given todya Reason For Referral Reason For Referral No Information Plan Of Treatment Date Type Action Status Referral Ordered: RADIOLOGIC EXAMINATION, KNEE; THREE VIEWS Bilateral Bilateral ordered History Of Present Illness Encounter Date Complaint History Of Prese nt Illness knee 10 years of prog ressive left medial knee dialy 8/10 pain with good rom and hlped a bit with injecitons but not with nsaids or over 6 monhths of phy directed home exercises 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 Patient Care Teams Name Effective Dates (start - stop) Status Members No Information
--- OUTSIDE RECORDS SUMMARY | 2024-04-01 07:07 | XMS_ITS | Patient Health Summary ---
Author Organization [facility] Address [address] [place] [address] Care Team Providers Care Transfer Iron Operator Name Role Phone Aidan Cam DO Primary Care Provider [phone] Note from [facility],non-owned Affiliates and Associated Physician Practices is amultiple site organization consisting of ambulatory clinics and hospital sitesin [place], [place], [place] and [place]. This disclosure is being madepursuant to the Care Everywhere program and may not contain all information available regarding this patient. Last updated 17.[facility] Allergies No known active allergies Medications Be aware that medications may not be up to date on this document. Always verify current medications with the patient. No known medications Social History Tobacco Use Types Packs/Day Years Used Date Smoking Tobacco: Never Tobacco Cessation:Counseling Given: No Alcohol Use Standard Drinks/Week Comments Yes 0 (1 standard drink = 0.6 oz pur e alcohol) socially Sex and Gender Information Value Date Recorded Sex Assigned at Not on file Gender Identity Not on file Sexual Orientation Not on file Last Filed Vital Signs Vital Sign Reading Time Taken Comments Blood Pressure - - Pulse - - Temperature - - Respiratory Rate - - Oxygen Saturation - - Inhaled Oxygen Concentration - - Weight 79.4 kg (175 lb) 11/22/2021 9:41 AM CDT Height 177.8 cm (5' 10 ) 11/22/2021 9:41 AM CDT Body Mass Index 25.11 11/22/2021 9:41 AM CDT Procedures * DERMATOPATHOLOGY(Performed 08/22/2022) * DERMATOPATHOLOGY(Performed 04/15/2020) Results * DERMATOPATHOLOGY (08/22/2022 12:00 AM CDT) Only the most recent of2 resultswithin the time period is included. Case Report Dermatopathology Report Case: [id number] Authorizing Provider: Isael Salcedo MD Collected: 08/22/2022 12:00 AM Ordering Location: [facility] DermPath Lab Received: 08/22/2022 03:15 PM Pathologist: Mino Ball MD Specimen: Skin, left hand 2:20 PM CDT DERMATOPATHOLOGY LABORATORY Final Diagnosis Specimen A. SKIN, left hand: HYPERPLASTIC (HYPERTROPHIC) ACTINIC KERATOSIS (L57.0) 2:20 PM CDT DERMATOPATHOLOGY LABORATORY Clinical History [facility] vs [place] Path#[id number] 2:20 PM CDT DERMATOPATHOLOGY LABORATORY Gross Description Specimen A: Received is one formalin filled container labeled with the patient's name and designated left hand. The specimen consists of a shave biopsy measuring 7x7x1 mm. Jar 0. 2:20 PM CDT DERMATOPATHOLOGY LABORATORY Microscopic Description Specimen A. SKIN, left hand: There is hyperkeratosis alternating with parakeratosis. There is epidermal hyperplasia with disorderly maturation of keratinocytes with nuclear pleomorphism confined to the lower half of the epidermis. 2:20 PM CDT DERMATOPATHOLOGY LABORATORY Disclaimer An external and internal positive and negative controls are appropriate for the histochemical, immunohistochemical and immunofluorescence stain(s) in this case (if any), except where stated explicitly. The performance characteristics of the stain(s) cited in this report were developed and its performance characteristic determined by the Dermatopathology Laboratory at [facility], directed by Dr. Ruby Ball. These tests need not be, and therefore are not, approved by the [place] Food and Drug Administration. The tests are used for clinical purposes. Billing Codes Specimen Charges Stain Charges 33749 1 2:20 PM CDT DERMATOPATHOLOGY LABORATORY Embedded Images 2:20 PM CDT DERMATOPATHOLOGY LABORATORY Pathology/Cytolog y TISSUE SPECIMEN FROM SKIN / Unknown 08/22/2022 08/22/2022 3:15 PM CDT Isael Salcedo MD LAB - PATHOLOGY/CYTO LOGY ORDERABLES DERMATOPATHOLOGY LABORATORY [facility] - Department of Dermatology [facility] Medicine [address] [place] [address], [address] [phone] Care Teams Transfer Iron Operator Relationship Specialty Start Date End Date Aidan Cam DO [address] [facility] [address] [place], [place] [id number] PCP - General Internal Medicine 11/22/21
--- OUTSIDE RECORDS SUMMARY | 2024-04-01 07:07 | XMS_ITS | Data Portability ---
Author Organization [place] [facility] [employer] [facility], Main Office Address [address] [place] [address] Care Team Providers Care Rubber Production Machine Operator Name Role Phone VIKI ARDON Primary Care Provider VIKI ARDON Referring Provider Assessment Encounter Date Assessment Date Assessment LastModified by Organization Details LastModified Time 06/01/2022 06/01/2022 The patient has advanced primary osteoarthritis left knee joint with [id number] changes in medial compartment which has worsened compared x-rays done 2 years ago when he still had some space left in the medial joint. We talked about treatment options today in detail he wanted proceed with Gel shots therefore under sterile conditions I injected the patient's left knee joint in the office today with Euflexxa injection number 1. I will see him back next week for the 2nd injection left knee. If Gel shots do not give him good relief he knows that total knee arthroplasty will be the best way to give him long-term relief. He has been thinking about this for a while now would like to put this off until he retires. He voiced understanding and agrees above plan will call for any further problems difficulties or questions. Not available 06/01/2022 15:26:50 06/08/2022 06/08/2022 Patient has advanced primary osteoarthritis left knee joint. Under sterile conditions I injected the patient's left knee joint in the office With Euflexxa injection number 2. I will see him back next week for 3rd injection he voiced understanding agrees above plan call for any further problems difficulties or questions. Not available 06/08/2022 15:06:40 06/15/2022 06/15/2022 Patient has advanced primary osteoarthritis left knee joint as described. Under sterile conditions I injected the patient's left knee joint in the office today with Euflexxa injection number 3. Patient tolerated procedure well. I will see him back as needed he is doing very well with his knee today. We can do this again in 6 months versus cortisone in between he voiced understanding agrees above plan will call for any further problems difficulties or questions. Not available 06/15/2022 15:13:38 Plan of Treatment Reminders Order Date Submit Date Provider Last Modified By Organization Details Last Modified Time Details Appointments None recorded. Lab None recorded. Referral None recorded. Procedures knee aspiration /injection (PROC) 2022 023 [email or web address] In-Office Order, Internal Use Only DO Not Attach Compendium DO Not Attach Compendium, Do Not Delete/merge, [id number] 3 14:49:36 knee aspiration /injection (PROC) 2022 023 [email or web address] In-Office Order, Internal Use Only DO Not Attach Compendium DO Not Attach Compendium, Do Not Delete/merge, [id number] 14:56:31 knee aspiration /injection (PROC) 2022 023 [email or web address] In-Office Order, Internal Use Only DO Not Attach Compendium DO Not Attach Compendium, Do Not Delete/merge, 14459 15:07:53 Surgeries None recorded. Imaging XR, knee 2022 023 [email or web address] [facility], [address], [place], [address], 3 17:04:59 Medication Orders Euflexxa 10 mg/mL (mw 2.4-3.6 million) intra-franco cular syringe 2022 023 [email or web address] [id number], [address], [place], [place], [id number], 3 15:15:43 Euflexxa 10 mg/mL (mw 2.4-3.6 million) intra-franco cular syringe 2022 023 [email or web address] [id number], [address] [place], [place], [id number], 15:08:54 Euflexxa 10 mg/mL (mw 2.4-3.6 million) intra-franco cular syringe 2022 023 [email or web address] [facility]90403, [address] [place], [place], [id number], 3 15:30:27 Patient TargetsNo targets recorded. Patient InstructionsNo instructions recorded. Reason for Referral None Reported. Results Created Date Observation Date Name Description Value Unit Range Abnormal Flag Note LastModifiedBy Organization Detail LastModifiedTime 06/02/19 23 XR, knee No observ ation record ed. [email or web address] [facility] [address], [place], [address], 06/01/2022 15:29:28 Result Notes None recorded. Problems Name Problem SNOMED Code Status Onset Date Resolution Date Notes Provider Name and Address Organization Details Recorded Time Injury of lower limb 782240941 Active Not Available [facility] 3 13:13:22 Lateral epicondyli tis 080648412 Active Not Available [facility] 3 13:13:22 Osteoarthr itis 420764833 Active Not Available [facility] 3 13:13:22 Medial epicondyli tis 98903569 Active Not Available [facility] 3 13:13:22 Pain of left knee joint 6346942502190 07 Active 2022 JOSELYN Hurst, [employer] 3 15:06:27 Osteoarthr itis of left knee joint 9694485847428 09 Active 2022 JOSELYN [place], [place] [facility] [employer] 3 15:06:45 Problem Notes None recorded. Procedures Surgical History Date Name Laterality Status Provider Name and Address Organization Details Recorded Time Knee Surgery completed Not [facility] 04/05/2022 13:12:44 Imaging Results Imaging Date Name Status LastModified by Organiz ation Details LastModified Time 06/01/2022 XR, knee completed [email or web address] [facility] [place] [address], [place], [address], 06/01/2022 15:29:28 Procedure Notes None recorded. Medical Equipment None Reported. Allergies No known drug allergies Medications Name Sig Start Date Stop Date Status Note LastModified by Organization Details LastModified Time amoxicillin 500 mg capsule TK ONE C PO QID 04/20 completed Not Available Not Available Not Available prednisone 10 mg tablet 04/07 completed Not Available Not Available Not Available doxycycline hyclate 100 mg capsule TAKE ONE CAPSULE BY MOUTH TWICE DAILY active Not Available Not Available No t Available azithromyci n 250 mg tablet TAKE 2 TABLETS BY MOUTH FOR 1 DAY THEN TAKE 1 TABLET BY MOUTH DAILY FOR 4 DAYS active Not Available Not Available No t Available benzonatate 200 mg capsule 04/20 completed Not Available Not Available Not Available minocycline 100 mg capsule TK 1 C PO D. 04/20 completed Not Available Not Available Not Available triamcinolo ne acetonide 0.1 % topical cream APPLY TO BACK DAILY NEEDED FOR FLARES active Not Available Not Available No t Available hydrocortis one-acetic acid 1 %-2 % ear drops 04/07 completed Not Available Not Available Not Available betamethaso ne valerate 0.1 % topical cream APPLY TOPICALLY TO THE AFFECTED AREA TWICE DAILY active Not Available Not Available No t Available halobetasol propionate 0.05 % topical ointment LISBETH EXT AA D FOR 2 WKS active Not Available Not Available No t Available levofloxaci n 500 mg tablet 04/14 completed Not Available Not Available Not Available methylpredn isolone 4 mg tablets in a dose pack 04/07 completed Not Available Not Available Not Available fluticasone propionate 50 mcg/actuati on nasal spray,suspe nsion 04/07 completed Not Available Not Available Not Available doxycycline hyclate 100 mg tablet TK 1 T PO D WITH A FULL MEAL active Not Available Not Available No t Available naproxen 500 mg tablet 04/07 completed Not Available Not Available Not Available amoxicillin 875 mg-potassiu m clavulanate 125 mg tablet 04/07 completed Not Available Not Available Not Available Euflexxa 10 mg/mL (mw 2.4-3.6 million) intra-artic ular syringe Inject 2.5 mL by intra-art icular route as directed for 21 days. 2023 active Not Available Not Available Not Avai lable doxycycline monohydrate 40 mg capsule,imm ediate - delay release TAKE 1 CAPSULE BY MOUTH DAILY WITH A MEAL active Not Available Not Available No t Available azelastine 205.5 mcg (0.15 %) nasal spray USE 2 SPRAYS IN EACH NOSTRIL TWICE DAILY active Not Available Not Available No t Available Suprep Bowel Prep Kit 17.5 gram-3.13 gram-1.6 gram oral solution 04/07 completed Not Available Not Available Not Available Eliquis 5 mg tablet TAKE 1 TABLET BY MOUTH TWICE DAILY active Not Available Not Available No t Available Soolantra 1 % topical cream active Not Available Not Available Not Available Flucelvax Quad 7908-3317 (PF) 60 mcg (15 mcg x 4)/0.5 mL IM syringe ADM 0.5ML IM UTD 04/20 completed Not Available Not Available Not Available Flucelvax Quad 4124-0545 60 mcg (15 mcg x 4)/0.5 mL IM suspension ADM 0.5ML IM UTD 04/20 completed Not Available Not Available Not Available Fluzone High-Dose (PF) 180 mcg/0.5 mL intramuscul ar syringe ADM 0.5ML IM UTD 04/20 completed Not Available Not Available Not Available Vitals Date Recorded Body mass index (BMI) Body height Pain severity - 0-10 verbal numeric rating [Score] - Reported Body weight Provider Name and Address Organization Details Last Updated DateTime 04/27/2020 23 kg/m2 177.8 cm 7 94746.74 g Not Available [facility] 04/05/2022 13:12:56 Date Recorded Body mass index (BMI) Body height Body weight Provider Name and Address Organization Details Last Updated DateTime 05/04/2020 23 kg/m2 180.34 cm 73975.74 g Not Available [facility] 04/05/2022 13:12:56 Date Recorded Body height Body mass index (BMI) Body weight Provider Name and Address Organization Details Last Updated DateTime 06/01/2022 177.8 cm 25.1 kg/m2 06235.66 g JOSELYN [place] [employer] [place] 06/01/2022 15:04:43 Date Recorded Body height Body mass index (BMI) Body weight Provider Name and Address Organization Details Last Updated DateTime 06/08/2022 177.8 cm 25.1 kg/m2 64434.66 g JOSELYN Hurst [employer] [place] 06/08/2022 14:54:52 Date Recorded Body height Body mass index (BMI) Body weight Provider Name and Address Organization Details Last Updated DateTime 06/15/2022 177.8 cm 24.4 kg/m2 97771.7 g 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 Occasional [email or web address] Information not available 06/01/2022 Sex: Unknown Functional Status None recorded. Mental Status None recorded. Family History Relationship Description Onset Age of this Age Resolved Age Notes LastModified by Organization Details LastModified Time Unspecified Relation Heart disease [id number] Not available 04/05/2022 13:12:44 Unspecified Relation Hypertensive disorder [id number] Not available 04/05/2022 13:12:44 Medical History Condition Response SKIN PROBLEMS Y ARTHRITIS Y Past Encounters Encounter ID Performer Location Encounter Start Date Encounter Closed Date Diagnosis/Indication Diagnosis SNOMED-CT Code Diagnosis ICD10 Code Diagnosis Note [id number] [facility] [address] [place] [address] 04/20/2020 00:00:00 04/20/2020 16:37:17 [id number] [facility] [address] [place] [address] 04/27/2020 00:00:00 04/27/2020 15:09:49 [id number] [facility] [address] [place] [address] 05/04/2020 00:00:00 05/04/2020 16:23:20 [id number] [facility] [address] [place] [address] 06/01/2022 14:43:38 06/01/2022 17:04:59 Pain of left knee joint 4763326109 63519 M25.562 Osteoarthr itis of left knee joint 0293427084 58475 M17.12 [id number] ANIA Kennedy [facility] [address] [place] [address] 06/08/2022 14:51:14 06/08/2022 15:18:46 Osteoarthritis of left knee joint 1100174828 81039 M17.12 Pain of le ft knee joint 2574732008 94742 M25.562 [id number] [facility] [address] [place] [address] 06/15/2022 14:45:52 06/15/2022 16:08:44 Osteoarthritis of left knee joint 1346616009 65564 M17.12 Pain of le ft knee joint 1018179893 23406 M25.562 Health Concerns Section Related Observation LastModified by Organization Detai ls LastModified Time None Recorded Concern Status LastModified by Organization Details LastModified Time None Recorded Advance Directives Directive None Recorded Payers Encounter Date Sequence Insurance Name Policy Number Policy Mathis Covered Member ID Mathis Member ID Guarantor Name 06/01/2022 1 [facility] [id number] Davi Hong [id number] Davi Hong 06/08/2022 1 [facility] [id number] Davi Hong [id number] Davi Hong 06/15/2022 1 [facility] [id number] Davi Hong [id number] Davi Hong Notes Date Note Type Note Provider Name and Address Organization Details Recorded Time 06/01/2022 text/html Patient returns he is 66 years of age, we have not seen him for a little over 2 years. Two years ago he had Euflexxa injections they gave him excellent relief he was getting by until recently the last few months he has been having more more pain in the left knee. Denies any new trauma or injury no erythema heat no effusion no signs of infection. He has pain with ambulation started pain rest pain and night pain has trouble twisting turning squatting kneeling going up and down stairs. He reports a lot of the pain in the medial and posterior portion he states few months ago he was seen by his primary care physician at that time he had a Ron cyst that was bothering somewhat as well this has calmed down a bit. He also was diagnosed with DVT in the left lower extremity last year. He is now on chronic blood thinners and having no issues since that time. He states he is failing conservative measures on his own at home he cannot take anti-inflammatories because he is on chronic blood thinners he is wondering about repeating a round of gel shots he comes in today for Euflexxa injection number 1.Past medical history sheet was reviewed and signed on intake sheet today's date drug allergies current medications family social history previous surgical history 10 point review of systems was reviewed and discussed in detail today with the patient. ANIA Kennedy [address], [place], [address], Rew[employer]er 06/01/2022 15:30:23 06/08/2022 text/html patient returns for Euflexxa injection 2. Left knee. Denies any problems with the 1st round. He does have advanced primary osteoarthritis left knee joint trying to avoid total knee arthroplasty. ANIA Kennedy [address], [place], [address], Rew[employer]er 06/08/2022 15:06:53 06/15/2022 text/html Patient returns for Euflexxa injection number 3 left knee. He states he is getting good relief from the 1st 2 rounds of injections. He has bnpn-am-xzar changes in medial compartment which is advanced over time. Today he denies any erythema heat effusion or signs of infection. He is trying to avoid total knee arthroplasty for now. He has had a recent DVT is on chronic blood thinners and cannot take anti-inflammatory medication for now he wants to get by with conservative measures. ANIA Kennedy [address], [place], [address], Rewarder 06/15/2022 15:13:49
--- OUTSIDE RECORDS SUMMARY | 2024-04-01 07:07 | XMS_ITS | Encounter Summary ---
Author Organization [facility] Address [address] [place] [address] Care Team Providers Care Supervisor Sign Shop Name Role Phone Janes [place] MD Primary Care Provider + Aidan Cam DO Primary Care Provider [phone] Encounter Details Date Type Department Care Team (Late st Contact Info) Description 04/17/2020 Lab Requisition [facility] Lab [address] [place] [address] Isael Salcedo MD [address] [facility] [place] [address] Social History Tobacco Use Types Packs/Day Years Used Date Smoking Tobacco: Never Assessed Sex and Gender Information Value Date Recorded Sex Assigned at Not on file Gender Identity Not on file Sexual Orientation Not on file documented as of this encounter Plan of Treatment Not on file documented as of this encounter Procedures Procedure Name Priority Date/Time Associated Diagnosis Comments DERMATOPATHOLOGY Routine 04/15/2020 3:33 AM GREY INSPECTOR documented in this encounter Results * DERMATOPATHOLOGY (04/15/2020 3:33 AM GREY INSPECTOR) Case Report Dermatopathology Report Case: [id number] Authorizing Provider: Isael Salcedo MD Collected: 04/15/2020 03:33 AM Ordering Location: [facility] Received: 04/17/2020 10:12 AM Pathologist: Mickie Duncan MD Specimen: Skin, right helix 12:25 PM CDT DERMATOPATHOLOGY LABORATORY Final Diagnosis Specimen A. SKIN, right helix: BASAL CELL CARCINOMA, NODULAR TYPE (C44.212) 12:25 PM CDT DERMATOPATHOLOGY LABORATORY Clinical History [facility] vs other. Path#[id number] 12:25 PM CDT DERMATOPATHOLOGY LABORATORY Gross Description Specimen A: Received is one formalin filled container labeled with the patient's name and designated right helix. The specimen consists of a shave biopsy measuring 6x4x1 mm. Jar 0. 12:25 PM CDT DERMATOPATHOLOGY LABORATORY Microscopic Description Specimen A. SKIN, right helix: Within the dermis there are aggregates of basaloid cells with a high nuclear to cytoplasmic ratio and peripheral palisading. 12:25 PM CDT DERMATOPATHOLOGY LABORATORY Disclaimer An external and internal positive and negative controls are appropriate for the histochemical, immunohistochemical and immunofluorescence stain(s) in this case (if any), except where stated explicitly. The performance characteristics of the stain(s) cited in this report were developed and its performance characteristic determined by the Dermatopathology Laboratory at [facility], directed by Dr. [place] Ball. These tests need not be, and therefore are not, approved by the [place] Food and Drug Administration. The tests are used for clinical purposes. Billing Codes Specimen Charges Stain Charges 48054 1 12:25 PM CDT DERMATOPATHOLOGY LABORATORY Embedded Images 12:25 PM CDT DERMATOPATHOLOGY LABORATORY Pathology/Cytolo gy TISSUE SPECIMEN FROM SKIN / Unknown 04/15/2020 3:33 AM GREY INSPECTOR 04/17/2020 10:12 AM GREY INSPECTOR Isael Salcedo MD LAB - PATHOLOGY/CYTO LOGY ORDERABLES DERMATOPATHOLOGY LABORATORY [facility] - Department of Dermatology [address], [address] [phone] documented in this encounter Visit Diagnoses Not on filedocumented in this encounter Care Teams Supervisor Sign Shop Relationship Specialty Start Date End Date Janes Clarke MD [address] [address] PCP - General 04/16/20 11/21/21 Aidan Cam DO [address] [facility] [address] [place] [address] PCP - General Internal Medicine 11/22/21 documented as of this encounter
--- OUTSIDE RECORDS SUMMARY | 2024-04-01 07:07 | XMS_ITS | Encounter Summary ---
Author Organization [facility] Address [address] [place] [address] Care Team Providers Care Pit Boss Name Role Phone Aidan Cam DO Primary Care Provider [phone] Encounter Details Date Type Department Care Team (Late st Contact Info) Description 08/22/2022 Lab Requisition [facility] - DermPath Lab [address] [facility] [place] [address] Isael Salcedo MD [address] [place] [address] Social History Tobacco Use Types Packs/Day Years Used Date Smoking Tobacco: Never Alcohol Use Standard Drinks/Week Comments Yes 0 [...] Priority Date/Time Associated Diagnosis Comments DERMATOPATHOLOGY Routine 08/22/2022 12:0 0 AM CDT documented in this encounter Results * DERMATOPATHOLOGY (08/22/2022 12:00 AM CDT) Case Report Dermatopathology Report Case: [id number] Authorizing Provider: Isael Salcedo MD Collected: 08/22/2022 12:00 AM Ordering Location: [facility] Lab Received: 08/22/2022 03:15 PM Pathologist: Mino Ball MD Specimen: Skin, left hand 2:20 PM CDT DERMATOPATHOLOGY LABORATORY Final Diagnosis Specimen A. SKIN, left hand: HYPERPLASTIC (HYPERTROPHIC) ACTINIC KERATOSIS (L57.0) 3 2:20 PM CDT DERMATOPATHOLOGY LABORATORY Clinical History [facility] vs [place] Path#[id number] 3 2:20 PM CDT DERMATOPATHOLOGY LABORATORY Gross Description Specimen A: Received is one formalin filled container labeled with the patient's name and designated left hand. The specimen consists of a shave biopsy measuring 7x7x1 mm. Jar 0. 3 2:20 PM CDT DERMATOPATHOLOGY LABORATORY Microscopic Description Specimen A. SKIN, left hand: There is hyperkeratosis alternating with parakeratosis. There is epidermal hyperplasia with disorderly maturation of keratinocytes with nuclear pleomorphism confined to the lower half of the epidermis. 3 2:20 PM CDT DERMATOPATHOLOGY LABORATORY Disclaimer An external and internal positive and negative controls are appropriate for the histochemical, immunohistochemical and immunofluorescence stain(s) in this case (if any), except where stated explicitly. The performance characteristics of the stain(s) cited in this report were developed and its performance characteristic determined by the Dermatopathology Laboratory at [facility], directed by Dr. [place] Ball. These tests need not be, and therefore are not, approved by the [place] Food and Drug Administration. The tests are used for clinical purposes. Billing Codes Specimen Charges Stain Charges 07791 1 3 2:20 PM CDT DERMATOPATHOLOGY LABORATORY Embedded Images 3 2:20 PM CDT DERMATOPATHOLOGY LABORATORY Pathology/Cytolog y TISSUE SPECIMEN FROM SKIN / Unknown 08/22/2022 08/22/2022 3:15 PM CDT Isael Salcedo MD LAB - PATHOLOGY/CYTO LOGY ORDERABLES DERMATOPATHOLOGY LABORATORY [facility] - Department of Dermatology [facility] [place] [facility] Medicine [address] [place] [address], [address] [phone] documented in this encounter Visit Diagnoses Not on filedocumented in this encounter Care Teams Pit Boss Relationship Specialty Start Date End Date Aidan Cam DO [address] [facility] [address] [place] [address] PCP - General Internal Medicine 11/22/21 documented as of this encounter
--- OUTSIDE RECORDS SUMMARY | 2024-04-01 07:07 | XMS_ITS | Clinical Summary ---
Author Organization [facility] Address [address] [facility] [place] [address] Care Team Providers Care Lead Quality Technician Name Role Phone Aidan Cam DO Primary Care Provider [phone] Source Comments [facility],non-owned Affiliates and Associated Physician Practices is amultiple site organization consisting of ambulatory clinics and hospital sitesin [place], [place], [place] and [place]. This disclosure is being madepursuant to the Care Everywhere program and may not contain all information available regarding this patient. Last updated 17.[facility] Allergies No known active allergies Medications Be [...] Mass Index 25.11 11/22/2021 9:41 AM CDT Plan of Treatment Health Maintenance Due Date Last Done Comments COLOGUARD (AGES 45-75) - COL ON CA SCREENING 1953 COLON MONITORING 1953 COLONOSCOPY - COLON CA SCREENING 1953 CT COLONOGRAPHY - COLON CA SCREENING 1953 Colorectal Cancer Screening 1953 FIT - COLON CA SCREENING 1953 FLEX SIG - COLON CA SCREENING 1953 LIPID TESTING 1953 HEPATITIS C SCREENING 10/11/1971 DTAP/TDAP/TD VACCINES (1 - Tdap) 1972 PNEUMOCOCCAL VACCINE 50+ (1 of 1 - PCV) 10/16/2003 ZOSTER VACCINE (1 of 2) 10/16/2003 SCREENING FOR DIABETES 11/22/2021 COVID-19 VACCINE (1 - 2023-2 5 season) 2023 INFLUENZA VACCINE (#1) 2023 DEPRESSION SCREENING 02/06/2024 Respiratory Syncytial Virus (RSV) Vaccine Pt: or over 60 yrs (1 - 1-dose 75+ series) 2028 HEPATITIS B VACCINE Aged Out No longe r eligible based on patient's age to complete this topic HIB VACCINE Aged Out No longer eligi ble based on patient's age to complete this topic HPV VACCINE Aged Out No longer eligi ble based on patient's age to complete this topic MENINGOCOCCAL (Group B) VACCINE Aged Out No longer eligible based on patient's age to complete this topic MENINGOCOCCAL VACCINE Aged Out No vladimir cara eligible based on patient's age to complete this topic Care Teams Lead Quality Technician Relationship Specialty Start Date End Date Aidan Cam DO [address] [facility] [address] [place] [address] PCP - General Internal Medicine 11/22/21
--- OUTSIDE RECORDS SUMMARY | 2024-04-01 07:07 | XMS_ITS | CONTINUITY OF CARE DOCUMENT ---
Author Name quintin abigailgloria Address Unknown Organization [facility] Address [address] [place] [address] Phone [phone] Care Team Providers Care Roll Tension Tester Name Role Phone Eran Roldan MD Unavailable [phone] Tim Stauffer MD Unavailable VIKI ARDON MD Unavailable [phone] PROBLEMS Condition Status Date Provider Notes Acute DVT of leg, left active Kamal Fetouh Pain in limb active Kamal Fetouh Numbness of left toes active Eran Roldan MD Abnormal laboratory test completed - 1 Eran Roldan MD d-dimer ENCOUNTERS Date Type Provider Location Encounter Diag nosis - In-person encounter Office Visit Eran Roldan MD [place] [facility] Abnormal laboratory test - In-person encounter Office Visit Eran Roldan MD [place] [facility] - In-person encounter Office Visit Eran Roldan MD [place] [facility] - In-person encounter Office Visit Eran Roldan MD [place] [facility] Numbness of left toes VITAL SIGNS Date Observation Value Provider Body Mass Index (Ratio) 24.25 kg/m2 Romeo Roldan MD blood pressure, diastolic 84 mm[Hg] Larisa Rojas blood pressure, systolic 143 mm[Hg] Mary Rojas oxygen saturation, oximetry 96 % Catalina Rojas pulse rate 87 /min Catalina Rojas respiratory rate E&M 12 /min Catalina Rojas weight E&M 169 [lb_av] Catalina Rojas height E&M 70 [in_i] Catalina Commodore blood pressure, cuff size regular An yareli Rojas Body Mass Index (Ratio) 24.10 kg/m2 Romeo Roldan MD pulse rate 90 /min Fabby Hernández blood pressure, diastolic 84 mm[Hg] Aaron Hernández blood pressure, systolic 129 mm[Hg] She ethan Hernández oxygen saturation, oximetry 98 % Fabby Hernández weight E&M 168 [lb_av] Fabby Hernández height E&M 70 [in_i] Fabby Hernández respiratory rate E&M 18 /min Fabby Hernández blood pressure, cuff size regular stephen Hernández Body Mass Index (Ratio) 24.53 kg/m2 Romeo Roldan MD blood pressure, diastolic 88 mm[Hg] St mariella Barton blood pressure, systolic 145 mm[Hg] Carmen Barton oxygen saturation, oximetry 98 % Guillermina Barton pulse rate 85 /min Guillermina Barton respiratory rate E&M 18 /min Guillermina carrizales weight E&M 171 [lb_av] Guillermina Barton height E&M 70 [in_i] Guillermina Barton Body Mass Index (Ratio) 23.67 kg/m2 Romeo Roldan MD blood pressure, diastolic 80 mm[Hg] Isaura nkLogkristin blood pressure, systolic 141 mm[Hg] Liv kLogkristin blood pressure, diastolic 80 mm[Hg] Maria Esther urbano Alvin blood pressure, systolic 141 mm[Hg] Valentina Esquivel respiratory rate E&M 18 /min Juanita Alvin oxygen saturation, oximetry 98 % Juanita Esquivel pulse rate 82 /min Juanita Esquivel height E&M 70 [in_i] Juanita Esquivel weight E&M 165 [lb_av] Juanita Esquivel ALLERGIES No Known Drug Allergies RESULTS Date Observation Value Provider Reference Range Interpretation Location folate, serum 16.5 ng/mL [facility] Normal B-12, serum 363 pg/mL [facility] 200-1100 Normal D-dimer quantitative mcg/mL 1.31 MCG/ML FEU [facility] <0.50 High NT-pro BNP 48 [facility] Normal HISTORY OF MEDICATION USE Medication Status Instructions Dates Provider Indications Com ments Eliquis 5 mg tablet active Take 1 tablet by mouth twice a day Eran Roldan MD SOCIAL HISTORY Date Observation Value Provider smoking status Never smoker Eran abarca MD social history E&M S moking History: Kristy gastelum has never smoked. Eran Roldan MD social history reviewed E&M revi ewed - no changes required Eran Roldan MD smoking status Never smoker Fabby Betty social history E&M S moking History: Kristy gastelum has never smoked. Eran Roldan MD social history reviewed E&M revi ewed - no changes required Eran Roldan MD smoking status Never smoker Guillermina Mick social history E&M S moking History: Kristy gastelum has never smoked. Eran Roldan MD smoking status Never smoker Eran abarca MD number of grandchildren Eran Roldan MD social history reviewed E&M revi ewed - no changes required Eran Roldan MD INSURANCE PROVIDERS Payer name Policy type / Coverage type [place] red republican ID [facility] [id number] Other [id number] ADVANCE DIRECTIVES Name Date DISCUSSED - NO DECISION MADE TREATMENT PLAN Date Name Performer [id number],S, Eran Menard ra, [place] [id number],S, Eran Menard ra, [place] [id number],B, Eran Menard ra, [place] [id number],S, Eran Menard ra, [place] [id number],S, Eran Menard ra, [place] [id number],S, Eran Menard ra, [place] [id number],W, Eran Menard ra, MD [id number],W, Eran Menard ra, MD Cardiology Eran Yousif Cardiology Eran Yousif Cardiology Eran Yousif Cardiology Eran Yousif Cardiology Eran Yousif Cardiology Eran Yousif Cardiology Eran Yousif Cardiology Eran Yousif Cardiology Eran Yousif Cardiology Eran Yousif Date Name Venous Doppler Unila teral LLE CT Angio Chest (PE P rotocol) VITAMIN B12/FOLATE, SERUM PANEL Troponin T D-DIMER, QUANTITATIV E PROBNP, N TERMINAL Complete Echo Venous Doppler Unila teral LLE HISTORY OF PROCEDURES Procedure Date Procedure Name Provider Procedure Notes S tatus Complex e/m visit add on Eran Roldan MD completed EKG Eran Roldan MD complet ed
--- OUTSIDE RECORDS SUMMARY | 2024-04-01 07:07 | XMS_ITS | Referral Summary ---
Author Organization [facility] Address [address] [place] [address] Care Team Providers Care Ton Container Filler Name Role Phone Aidan Cam DO Primary Care Provider [phone] Source Comments [facility],non-owned Affiliates and Associated Physician Practices is amultiple site organization consisting of ambulatory clinics and hospital sitesin [place], [place], [place] and [place]. This disclosure is being madepursuant to the Care Everywhere program and may not contain all information available regarding this patient. Last updated 17.[facility] [employer] Allergies No known active allergies Medications Be [...] 11/22/2021 9:41 AM CDT Plan of Treatment Not on file Care Teams Ton Container Filler Relationship Specialty Start Date End Date Aidan Cam DO [address] [place], [place] [id number] PCP - General Internal Medicine 11/22/21
--- NOTE | 2024-04-01 08:43 | ECG_ITS ---
Test Date: 2024-04-01 08:55:07 Measurements Intervals [place] Rate: 75 P: 38 MA: 209 QRS: 13 QRSD: 109 T: 52 QT: 353 QTc: 395 Interpretive Statements SINUS RHYTHM BASELINE ARTIFACT- I, II, III, AVR, AVL, AVF NORMAL ECG No previous ECG available for comparison Electronically Signed On 04-01-2024 09:09:41 MANAGER GYN by Jeovanny Euceda D.O.
== END 2024-04-01 07:04 | disposition home or self-care (01) ==
PROVIDERS: PCP Internal Medicine; Visit Provider Internal Medicine
DX: Z01.810 Encounter for preprocedural cardiovascular examination (principal)
CPT/HCPCS: 93005

== ENCOUNTER 2024-04-02 06:44 | Outpatient (CLI) | payer OTHER, SELFPAY ==
--- OUTSIDE RECORDS SUMMARY | 2024-04-02 06:49 | XMS_ITS | Continuity of Care Document ---
Author Organization [facility] Address [address] [place] [address] Phone Care Team Providers Care Slot Shift Supervisor Name Role Phone London Mercado Unavailable Unavailable [...] Copied on Encounter Office/outpat ient visit,[facility], [address], [place], [place], [address], [place] tel:[phone] [facility] [employer] [facility] left knee (chief complaint) Pain in left kneeUnilateral primary osteoarthritis, left knee 5 Rogelio Snider er. [address], [place], [place], [address] , [place]. tel:[phone] Office/outpat ient visit,[facility], [address], [place], [place], [address], [place] tel:[phone] [facility] left knee (chief complaint) Pain in left kneeUnilateral primary osteoarthritis, left knee 4 Rogelio bond. [address], [address], [place], [place], [address] , [place]. tel: [phone] Family History Family Member Type Diagnosis Age At Onset Father Problem (finding) Heart Disease Immunizations Vaccine Date Status Comments influenza, injectable, quadrivalent, (3 years or older) administered Note: per patient ; Source: Source Unspecified Payers Payer name Insurance type Covered libertarian ID Authorrhiannaa xin(s) [facility] [id number] Social History Type Description Quantity Date [...]
--- OUTSIDE RECORDS SUMMARY | 2024-04-02 06:49 | XMS_ITS | Clinical Summary ---
Author Organization [facility] Address [address] [place] [address] Care Team Providers Care Orthotics Assistant Name Role Phone Aidan Cam DO Primary Care Provider [phone] Source Comments [facility],non-owned Affiliates and Associated Physician Practices is amultiple site organization consisting of ambulatory clinics and hospital sitesin [place], [place], [place]. This disclosure is being madepursuant to the Care Everywhere program and may not contain all information available regarding this patient. Last updated 17.[facility] Allergies No known active allergies Medications Be [...] age to complete this topic Care Teams Orthotics Assistant Relationship Specialty Start Date End Date Aidan Cam DO [address] [place] [address] PCP - General Internal Medicine 11/22/21
--- OUTSIDE RECORDS SUMMARY | 2024-04-02 06:49 | XMS_ITS | Encounter Summary ---
Author Organization [facility] Address [address] [place] [address] Care Team Providers Care Substation Operator Name Role Phone Aidan Cam DO Primary Care Provider [phone] Encounter Details Date Type Department Care Team (Late st Contact Info) Description 08/22/2022 Lab Requisition [facility] - DermPath Lab [address] [place] [address] Isael Salcedo MD [address] [place] [place] [address] Social History Tobacco Use Types [...] AM CDT) Case Report Dermatopathology Report Case: [id number] Authorizing Provider: Isael Salcedo MD Collected: 08/22/2022 12:00 AM Ordering Location: [facility] DermPath Lab Received: 08/22/2022 03:15 PM Pathologist: Mino Ball MD Specimen: Skin, left hand 2:20 PM CDT DERMATOPATHOLOGY LABORATORY Final Diagnosis Specimen A. SKIN, left hand: HYPERPLASTIC (HYPERTROPHIC) ACTINIC KERATOSIS (L57.0) 3 2:20 PM CDT DERMATOPATHOLOGY LABORATORY Clinical History [facility]A vs [place] Path#[id number] 3 2:20 PM CDT DERMATOPATHOLOGY LABORATORY Gross [...] characteristic determined by the Dermatopathology Laboratory at [facility], directed by Dr. Ruby Ball. These tests need not be, and therefore are not, approved by the [place] Food and Drug Administration. The tests are used for clinical purposes. Billing Codes Specimen Charges Stain Charges 24011 1 3 2:20 PM CDT DERMATOPATHOLOGY LABORATORY Embedded Images 3 2:20 PM CDT DERMATOPATHOLOGY LABORATORY Pathology/Cytolog y TISSUE SPECIMEN FROM SKIN / Unknown 08/22/2022 08/22/2022 3:15 PM CDT Isael Salcedo MD LAB - PATHOLOGY/CYTO LOGY ORDERABLES DERMATOPATHOLOGY LABORATORY [facility] - Department of Dermatology [facility] Medicine [address] [place] [address], [address] [phone] documented in this encounter Visit Diagnoses Not on filedocumented in this encounter Care Teams Substation Operator Relationship Specialty Start Date End Date Aidan Cam DO [address] [place] [address] PCP - General Internal Medicine 11/22/21 documented as of this encounter
--- OUTSIDE RECORDS SUMMARY | 2024-04-02 06:49 | XMS_ITS | CONTINUITY OF CARE DOCUMENT ---
Author Name quintin abigailgloria Address Unknown Organization [facility] Address [address] [place] [address] Phone [phone] Care Team Providers Care Health Aid Name Role Phone Eran Roldan MD Unavailable [phone] Tmi Stauffer MD Unavailable VIKI ARDON MD Unavailable PROBLEMS Condition Status Date Provider Notes Acute DVT of leg, left active Kamal Fetouh Pain in limb active Kamal Fetouh Numbness of left toes active Eran Roldan MD Abnormal laboratory test completed - 1 Eran Roldan MD d-dimer ENCOUNTERS Date Type Provider Location Encounter Diag nosis - In-person encounter Office Visit Eran Roldan MD [place] [facility] Abnormal laboratory test - In-person encounter Office Visit Eran Roldan MD [place] [facility] - In-person encounter Office Visit Eran Roldan MD [place] [facility] - In-person encounter Office Visit Eran Roldan MD [place] [facility] Numbness of left toes VITAL SIGNS [...] Catalina Rojas height E&M 70 [in_i] Catalina [place] blood pressure, cuff size regular An yareli [...] Payer name Policy type / Coverage type [place] red constitution party ID [facility] [id number] Other [id number] ADVANCE DIRECTIVES Name Date DISCUSSED - NO DECISION MADE TREATMENT PLAN Date Name Performer [id number],S, Eran Menard ra, [place] [id number],S, Eran Menard ra, [place] [id number],B, Eran Menard ra, MD [id number],S, Eran Menard ra, MD [id number],S, Eran Menard ra, [place] [id number],S, Eran Menard ra, [place] [id number],W, Eran Menard ra, [place] [id number],W, Eran Menard ra, MD Cardiology Eran Yousif [...]
--- OUTSIDE RECORDS SUMMARY | 2024-04-02 06:49 | XMS_ITS | Patient Health Summary ---
Author Organization [facility] Address [address] [place] [address] Care Team Providers Care Ballast Inspector Name Role Phone Aidan Cam DO Primary Care Provider [phone] Note from [facility],non-owned Affiliates and Associated Physician Practices is amultiple site organization consisting of ambulatory clinics and hospital sitesin [place], [place], [place] and [place]. This disclosure is being madepursuant to the Care Everywhere program and may not contain all information available regarding this patient. Last updated 17.[facility] Allergies No known active allergies Medications Be [...] is included. Case Report Dermatopathology Report Case: [id number] Authorizing Provider: Isael Salcedo MD Collected: 08/22/2022 12:00 AM Ordering Location: [facility] DermPath Lab Received: 08/22/2022 03:15 PM Pathologist: Mino Ball MD Specimen: Skin, left hand 2:20 PM CDT DERMATOPATHOLOGY LABORATORY Final Diagnosis Specimen A. SKIN, left hand: HYPERPLASTIC (HYPERTROPHIC) ACTINIC KERATOSIS (L57.0) 2:20 PM CDT DERMATOPATHOLOGY LABORATORY Clinical History SCCA vs [place] Path#[id number] 2:20 PM CDT DERMATOPATHOLOGY LABORATORY Gross Description [...] characteristic determined by the Dermatopathology Laboratory at [facility], directed by Dr. Ruby Ball. These tests need not be, and therefore are not, approved by the [place] Food and Drug Administration. The tests are used for clinical purposes. Billing Codes Specimen Charges Stain Charges 34160 1 2:20 PM CDT DERMATOPATHOLOGY LABORATORY Embedded Images 2:20 PM CDT DERMATOPATHOLOGY LABORATORY Pathology/Cytolog y TISSUE SPECIMEN FROM SKIN / Unknown 08/22/2022 08/22/2022 3:15 PM CDT Isael Salcedo MD LAB - PATHOLOGY/CYTO LOGY ORDERABLES DERMATOPATHOLOGY LABORATORY [facility] - Department of Dermatology [facility] Medicine [address] [place] [address], [address] [phone] Care Teams Ballast Inspector Relationship Specialty Start Date End Date Aiadn Cam DO [address] [facility] [address] [place], [place] [id number] PCP - General Internal Medicine 11/22/21
--- OUTSIDE RECORDS SUMMARY | 2024-04-02 06:49 | XMS_ITS | Encounter Summary ---
Author Organization [facility] Address [address] [place] [address] Care Team Providers Care Wastewater Treatment Plant Operator Name Role Phone Janes Clarke MD Primary Care Provider + Aidan Cam DO Primary Care Provider [phone] Encounter Details Date Type Department Care Team (Late st Contact Info) Description 04/17/2020 Lab Requisition [facility] DermPath Lab [address] [place] [id number] Isael Salcedo MD [address] [place] [place] [address] Social History Tobacco Use Types Packs/Day Years [...] Diagnosis Comments DERMATOPATHOLOGY Routine 04/15/2020 3:33 AM PROGRAM COORDINATOR FOR [employer]ID[employer] documented in this encounter Results * DERMATOPATHOLOGY (04/15/2020 3:33 AM PROGRAM COORDINATOR FOR [employer]) Case Report Dermatopathology Report Case: [id number] Authorizing Provider: Isael Salcedo MD Collected: 04/15/2020 03:33 AM Ordering Location: [facility] DermPath Lab Received: 04/17/2020 10:12 AM Pathologist: Mickie Duncan MD Specimen: Skin, right helix 12:25 PM CDT DERMATOPATHOLOGY LABORATORY Final Diagnosis Specimen A. SKIN, right helix: BASAL CELL CARCINOMA, NODULAR TYPE (C44.212) 12:25 PM CDT DERMATOPATHOLOGY LABORATORY Clinical History BCCA vs other. Path#[id number] 12:25 PM CDT DERMATOPATHOLOGY LABORATORY Gross Description [...] characteristic determined by the Dermatopathology Laboratory at [facility], directed by Dr. Ruby Ball. These tests need not be, and therefore are not, approved by the [place] Food and Drug Administration. The tests are used for clinical purposes. Billing Codes Specimen Charges Stain Charges 28026 1 12:25 PM CDT DERMATOPATHOLOGY LABORATORY Embedded Images 12:25 PM CDT DERMATOPATHOLOGY LABORATORY Pathology/Cytolo gy TISSUE SPECIMEN FROM SKIN / Unknown 04/15/2020 3:33 AM PROGRAM COORDINATOR FOR [employer] 04/17/2020 10:12 AM PROGRAM COORDINATOR FOR [employer] Isael Salcedo MD LAB - PATHOLOGY/CYTO LOGY ORDERABLES DERMATOPATHOLOGY LABORATORY [facility] - Department of Dermatology [address], [address] [phone] documented in this encounter Visit Diagnoses Not on filedocumented in this encounter Care Teams Wastewater Treatment Plant Operator Relationship Specialty Start Date End Date Janes Clarke MD [address] [address] PCP - General 04/16/20 11/21/21 Aidan Cam DO [address] [facility] [address] [place] [address] PCP - General Internal Medicine 11/22/21 documented as of this encounter
--- OUTSIDE RECORDS SUMMARY | 2024-04-02 06:49 | XMS_ITS | Continuity of Care Document ---
Author Organization [facility] Address [address] [place] [address] Phone Care Team Providers Care Oyster Opener Name Role Phone Milagros Perdomo MD Unavailable Unavailable Allergies, Adverse Reactions, Alerts Substance Reaction Status Criticality No Known Allergies Active No Inform ation Procedures Procedure Date RADIOLOGIC EXAMINATION, KNEE; THREE VIEW S KENALOG 10 MG ASP/INJ MAJOR JOINTOR BURSA, SHOULDER, H IP,KNEE W/O US GUIDANCE OFFICE MAOCD-HMV-RUIPENAC Advance Directives Directive Yes / No Effective Date File Name No Information Encounters Encounter Description Practice Location Reason(s) For Visit Diagnoses Date Provider Providers Copied on Encounter OFFICE [id number], [address], [place], [place], [address], [place] tel:[phone] [facility] knee (chief complaint) Primary osteoarthritis of left knee Leanne Linares. [address], [place], [place], [address] , [place]. tel:[phone] Referring Provider: Phan Galloway [address] [facility] [address], [place], [address] . tel:[phone] Family History Family Member Type Diagnosis Age At Onset No Information Payers Payer name Insurance type Covered alliance party ID Authoriza tion(s) [facility] [id number] Social History Type Description Quantity Date Captured [...] monhths of phy directed home exercises works Edufii treatment palnt xrys med djd left knee [...] monhths of phy directed home exercises works Edufii treatment palnt xrys med djd left knee [...] Mental Status Date Cognitive Assessment Orientation - Otley ed to time, place, person, situation. Patient Care Teams Name Effective Dates (start - stop) Status Members No Information
--- OUTSIDE RECORDS SUMMARY | 2024-04-02 06:49 | XMS_ITS | Referral Summary ---
Author Organization [facility] Address [address] [place] [address] Care Team Providers Care Tax Manager Cpa Name Role Phone Aidan Cam DO Primary Care Provider [phone] Source Comments [facility],non-owned Affiliates and Associated Physician Practices is amultiple site organization consisting of ambulatory clinics and hospital sitesin [place], [place], [place] and [place]. This disclosure is being madepursuant to the Care Everywhere program and may not contain all information available regarding this patient. Last updated 17.[facility] [employer] Allergies No known active allergies Medications Be [...] of Treatment Not on file Care Teams Tax Manager Cpa Relationship Specialty Start Date End Date Aidan Cam DO [address] [facility] [address] [address] [place], [place] [id number] PCP - General Internal Medicine 11/22/21
[2024-04-02 07:57] LABS: Hematocrit 43.7 % (42.0-52.0); Hemoglobin 14.5 g/dL (14.0-18.0); Mean Corpuscular HGB Conc 33.2 g/dl (32-36); Mean Corpuscular Hemoglobin 31.3 pg (26-34); Mean Corpuscular Volume 94.4 fl (80-100); Mean Platelet Volume 9.4 fl (7.4-10.4); Platelet Count Result 223 k/mm3 (150-375); Red Blood Count 4.63 M/mm3 (4.6-6.20); Red Cell Distribution Width 12.5 % (11.5-14.5)
[2024-04-02 08:15] LABS: Anion Gap 6 mmol/L (4-12); Blood Urea Nitrogen 13 mg/dL (9-20); Calcium 8.7 mg/dL (8.4-10.2); Carbon Dioxide 29 mmol/L (22-30); Chloride 104 mmol/L (98-107); Estimated Glomerular Filt Rate > 60; Glucose 100 mg/dL (65-110); Potassium 4.4 mmol/L (3.4-5.0); Sodium 139 mmol/L (137-145)
[2024-04-02 08:28] LABS: Hemoglobin A1C 5.9 % (<5.7)
== END 2024-04-02 06:45 | disposition home or self-care (01) ==
PROVIDERS: PCP Internal Medicine
DX: Z01.812 Encounter for preprocedural laboratory examination (principal); Z13.1 Encounter for screening for diabetes mellitus; M79.0 Rheumatism, unspecified; M25.569 Pain in unspecified knee
CPT/HCPCS: 36415; 80048; 83036; 85027